=== PATIENT | male | born 1940 | race Caucasian/White ===

== ENCOUNTER 2020-01-13 19:47 | Inpatient (IN) | payer OTHER, MEDICARE ==
[~2020-01-13] VITALS: Ht 167.6 cm; Wt 64.8 kg
[~2020-01-13 19:47] MED LIST: AMLO10 PO; Avodart0.5 MG PO; FISH1000 PO; IBUP600 PO; SUMA25 PO; TAMS.4ER PO; TIMO.5OPSO LEFTEYE
[2020-01-13 21:48] LABS: Hematocrit 43.3 % (37.0-53.0); Hemoglobin 14.1 g/dL (13.5-17.5); Mean Corpuscular HGB 28.8 pg (26.0-34.0); Mean Corpuscular HGB Conc 32.6 g/dL (31.5-36.5); Mean Corpuscular Volume 89 fL (80-100); Mean Platelet Volume 13.1 fL (9.1-12.4); Platelet Count 119 K/mm3 (150-400); RDW Coefficient Variation 13.3 % (11.7-14.2); RDW Standard Deviation 43.8 fL (35.1-46.3); Red Blood Cell Count 4.89 M/mm3 (4.30-5.90); White Blood Cell Count 6.32 K/mm3 (4.00-11.30)
[2020-01-13 22:03] LABS: Anion Gap 5 mmol/L (6-16); Blood Urea Nitrogen 11 mg/dL (8-24); Bun/Creatinine Ratio 15.4 (12.0-20.0); CO2, Blood 28 mmol/L (21-32); Calcium, Blood 8.6 mg/dL (8.5-10.1); Chloride, Blood 104 mmol/L (98-108); Creatinine, Blood 0.71 mg/dL (0.60-1.20); Glomerular Filtration Rate >60 (60-); Glucose, Blood 87 mg/dL (70-99); Sodium, Blood 137 mmol/L (136-145)
[2020-01-13 23:12] LABS: BASOPHILS PERCENT MAN 0 % (0-2); EOSINOPHILS ABSOLUTE MAN 0.06 K/mm3 (0.00-0.68); EOSINOPHILS PERCENT MAN 1 % (0-6); LYMPHOCYTES ABSOLUTE MAN 1.26 K/mm3 (0.84-5.20); LYMPHOCYTES PERCENT MAN 20 % (21-46); MONOCYTES PERCENT MAN 8 % (4-13); MYELOCYTE ABSOLUTE MAN 0.06 K/mm3 (0.00-0.00); MYELOCYTE PERCENT MAN 1 % (0-0); NEUTROPHILS ABSOLUTE MAN 4.42 K/mm3 (1.96-9.15); SEG NEUTROPHILS PERCENT MAN 70 % (41-73); TOTAL CELLS COUNTED 100
[2020-01-13] MEDS ORDERED: CARBLEV25 PO (23:14)
[2020-01-13] MEDS ORDERED: AMAN100 PO (23:15)
--- NOTE | 2020-01-14 05:08 | NUR ---
EMERGING TECHNOLOGIES DIRECTOR SUMMARY NEW ADMIT FROM THE ED TONIGHT. PT ADMITTED WITH DIVERTICULITIS W/ ABCESS. PT GIVEN 0.5 MG IV DILAUDID WHEN HE ARRIVED TO THE FLOOR AND HE STATES PAIN HAS BEEN WELL MANAGED SINCE. PT AAOX4 AND VERY PLEASANT. CALLS APPROPRIATELY. HAS STEADY GAIT. NPO AND RECIEVING IV FLUIDS. SURGICAL CONSULT CALLED IN TO ANSWERING SERVICE FOR DR BUNDY THIS MORNING. VSS, WILL CONTINUE TO MONITOR.
[2020-01-14 05:14] LABS: BASOPHILS ABSOLUTE AUTO 0.03 K/mm3 (0.00-0.23); BASOPHILS PERCENT AUTO 1 % (0-2); EOSINOPHILS ABSOLUTE AUTO 0.17 K/mm3 (0.00-0.68); EOSINOPHILS PERCENT AUTO 3 % (0-6); Hematocrit 41.3 % (37.0-53.0); Hemoglobin 13.3 g/dL (13.5-17.5); IMMATURE GRAN ABSOLUTE AUTO 0.02 K/mm3 (0.00-0.10); IMMATURE GRAN PERCENT AUTO 0 % (0-1); LYMPHOCYTES ABSOLUTE AUTO 0.66 K/mm3 (0.84-5.20); LYMPHOCYTES PERCENT AUTO 12 % (21-46); MONOCYTES ABSOLUTE AUTO 0.58 K/mm3 (0.16-1.47); MONOCYTES PERCENT AUTO 11 % (4-13); Mean Corpuscular HGB 28.8 pg (26.0-34.0); Mean Corpuscular HGB Conc 32.2 g/dL (31.5-36.5); Mean Corpuscular Volume 89 fL (80-100); NEUTROPHILS ABSOLUTE AUTO 3.99 K/mm3 (1.96-9.15); NEUTROPHILS PERCENT AUTO 73 % (41-73); Platelet Count 108 K/mm3 (150-400); RDW Coefficient Variation 13.2 % (11.7-14.2); RDW Standard Deviation 43.3 fL (35.1-46.3); Red Blood Cell Count 4.62 M/mm3 (4.30-5.90); White Blood Cell Count 5.45 K/mm3 (4.00-11.30)
[2020-01-14 05:15] LABS: Mean Platelet Volume 13.4 fL (9.1-12.4)
[2020-01-14 06:02] LABS: Alanine Aminotransfer (ALT/SGP 36 U/L (12-78); Albumin, Blood 2.9 g/dL (3.4-5.0); Albumin/Globulin Ratio 0.8 (0.8-1.8); Alk Phos 87 U/L (50-136); Anion Gap 7 mmol/L (6-16); Aspartate Aminotrans (AST/SGOT 25 U/L (12-37); Blood Urea Nitrogen 10 mg/dL (8-24); Bun/Creatinine Ratio 14.7 (12.0-20.0); CO2, Blood 26 mmol/L (21-32); Calcium, Blood 8.4 mg/dL (8.5-10.1); Chloride, Blood 108 mmol/L (98-108); Creatinine, Blood 0.68 mg/dL (0.60-1.20); Globulin, Blood 3.5 g/dL (2.2-4.0); Glomerular Filtration Rate >60 (60-); Glucose, Blood 82 mg/dL (70-99); Potassium, Blood 4.1 mmol/L (3.5-5.5); Sodium, Blood 141 mmol/L (136-145); Total Protein, Blood 6.4 g/dL (6.4-8.2)
--- NOTE | 2020-01-14 17:42 | NUR ---
SHIFT SUMMARY NO ACUTE CONCERNS FROM THE PATIENT. DENIES ANY ABDOMINAL PAIN OR CHEST PAIN OR SHORTNESS OF BREATH. HE AHS BEEN UP WALKING AROUND. HE FINISHED HIS FLUIDS. DENIES ANY CONCERNS. HIS WAS IN TO SEE HIM. REQUESTING INCREASE IN DIET AT THIS TIME.
[2020-01-15 05:23] LABS: BASOPHILS ABSOLUTE AUTO 0.02 K/mm3 (0.00-0.23); BASOPHILS PERCENT AUTO 0 % (0-2); EOSINOPHILS ABSOLUTE AUTO 0.12 K/mm3 (0.00-0.68); EOSINOPHILS PERCENT AUTO 3 % (0-6); Hematocrit 44.8 % (37.0-53.0); Hemoglobin 14.5 g/dL (13.5-17.5); IMMATURE GRAN ABSOLUTE AUTO 0.02 K/mm3 (0.00-0.10); IMMATURE GRAN PERCENT AUTO 0 % (0-1); LYMPHOCYTES ABSOLUTE AUTO 0.57 K/mm3 (0.84-5.20); LYMPHOCYTES PERCENT AUTO 12 % (21-46); MONOCYTES ABSOLUTE AUTO 0.47 K/mm3 (0.16-1.47); MONOCYTES PERCENT AUTO 10 % (4-13); Mean Corpuscular HGB 28.6 pg (26.0-34.0); Mean Corpuscular HGB Conc 32.4 g/dL (31.5-36.5); Mean Corpuscular Volume 88 fL (80-100); Mean Platelet Volume 12.8 fL (9.1-12.4); NEUTROPHILS PERCENT AUTO 74 % (41-73); Platelet Count 146 K/mm3 (150-400); RDW Coefficient Variation 13.1 % (11.7-14.2); Red Blood Cell Count 5.07 M/mm3 (4.30-5.90)
[2020-01-15 05:47] LABS: Anion Gap 8 mmol/L (6-16); Blood Urea Nitrogen 11 mg/dL (8-24); Bun/Creatinine Ratio 15.7 (12.0-20.0); CO2, Blood 24 mmol/L (21-32); Calcium, Blood 9.1 mg/dL (8.5-10.1); Chloride, Blood 107 mmol/L (98-108); Glomerular Filtration Rate >60 (60-); Glucose, Blood 64 mg/dL (70-99); Potassium, Blood 4.3 mmol/L (3.5-5.5); Sodium, Blood 139 mmol/L (136-145)
--- NOTE | 2020-01-15 06:02 | NUR ---
SOILS ENGINEER SUMMARY NO ACUTE CHANGES THIS SHIFT. PT AAOX4 AND VERY PLEASANT. INDEPENDENT IN ROOM. PT DENIES PAIN TONIGHT, SAYING THAT "EVERY ONCE IN AWHILE I'LL GET A SLIGHT DISCOMFORT BUT THEN IT GOES AWAY". HAS DENIED NEED FOR PAIN MEDS. CONTINUED ON IV ZOSYN Q6H. PT DOES HAVE APPETITE AND WANTS TO EAT BUT IS STILL NPO STATUS PER MD ORDERS. VSS, WILL CONTINUE TO MONITOR.
--- NOTE | 2020-01-15 18:04 | NUR ---
SHIFT SUMMARY PATIENT IS PLEASANT, ALERT AND ORIENTED. INDEPENDENT IN THE ROOM. HE HAS AN UNDERLYING TREMOR FROM [place] AND HAS BEEN VERY PLEASANT TODAY. HE HAS BEEN WALKING THE HALLS. HE IS APPROPRIATE AND WEARS HIS MASK. NOW THAT HE IS EATING HE IS NOTICING SOME EPISODES OF INCONTINENCE.
[2020-01-16 05:19] LABS: BASOPHILS ABSOLUTE AUTO 0.03 K/mm3 (0.00-0.23); BASOPHILS PERCENT AUTO 1 % (0-2); EOSINOPHILS ABSOLUTE AUTO 0.12 K/mm3 (0.00-0.68); EOSINOPHILS PERCENT AUTO 3 % (0-6); Hematocrit 42.6 % (37.0-53.0); IMMATURE GRAN ABSOLUTE AUTO 0.01 K/mm3 (0.00-0.10); IMMATURE GRAN PERCENT AUTO 0 % (0-1); LYMPHOCYTES ABSOLUTE AUTO 0.74 K/mm3 (0.84-5.20); LYMPHOCYTES PERCENT AUTO 19 % (21-46); MONOCYTES ABSOLUTE AUTO 0.49 K/mm3 (0.16-1.47); MONOCYTES PERCENT AUTO 13 % (4-13); Mean Corpuscular HGB 28.4 pg (26.0-34.0); Mean Corpuscular HGB Conc 32.9 g/dL (31.5-36.5); Mean Corpuscular Volume 86 fL (80-100); Mean Platelet Volume 11.9 fL (9.1-12.4); NEUTROPHILS ABSOLUTE AUTO 2.48 K/mm3 (1.96-9.15); NEUTROPHILS PERCENT AUTO 64 % (41-73); Platelet Count 148 K/mm3 (150-400); RDW Coefficient Variation 12.9 % (11.7-14.2); RDW Standard Deviation 40.3 fL (35.1-46.3); Red Blood Cell Count 4.93 M/mm3 (4.30-5.90); White Blood Cell Count 3.87 K/mm3 (4.00-11.30)
--- NOTE | 2020-01-16 05:35 | NUR ---
SHIFT SUMMARY- PT. A&O, PLEASANT, AND COOPERATIVE WITH CARE. INDEP IN ROOM. NO COMPAINTS OF PAIN T/O THE SHIFT. PT. ASLEEP MOST OF THE NIGHT, NO APPARENT DISTRESS NOTED. TOLERATING IV ABX WELL. NO ACUTE CHANGES TO CONDITION. CALL LIGHT WITHIN REACH AND SIDE RAILS UPX2. WILL CONT TO MONITOR.
[2020-01-16 05:43] LABS: Anion Gap 7 mmol/L (6-16); Blood Urea Nitrogen 8 mg/dL (8-24); Bun/Creatinine Ratio 10.6 (12.0-20.0); CO2, Blood 26 mmol/L (21-32); Chloride, Blood 108 mmol/L (98-108); Creatinine, Blood 0.76 mg/dL (0.60-1.20); Glomerular Filtration Rate >60 (60-); Glucose, Blood 89 mg/dL (70-99); Magnesium, Blood 2.1 mg/dL (1.6-2.4); Phosphorus, Blood 2.8 mg/dL (2.5-4.9); Potassium, Blood 3.4 mmol/L (3.5-5.5); Sodium, Blood 141 mmol/L (136-145)
--- NOTE | 2020-01-16 17:10 | NUR ---
SHIFT SUMMARY NO ACUTE CONCERNS AT THIS TIME. ALERT AND ORIENTED INDEPENDENT. CALLS APPROPRIATELY. NO ACUTE CONCERNS AT THIS TIME. HE STATES HE IS READY TO GO HOME.
--- NOTE | 2020-01-17 05:06 | NUR ---
SHIFT SUMMARY: VSS. AFEB. SBP 161 THIS AM. AAOX3. IND IN ROOM. PT REPORTED HAVING A LOOSE STOOL ON DAY SHIFT. LLQ ABD TENDERNESS W/PALPATION. NO N/V. SELIN CLEAR LIQUIDS WELL. IV ABT INFUSED PER ORDERS. NO ACUTE CONCERNS OVERNIGHT. WILL CONT TO MONITOR.
[2020-01-17] MEDS ORDERED: LACTOBACILLUS1 EAC4 PO (12:46)
[2020-01-17] MEDS ORDERED: AMOCLA875 PO (12:46)
--- NOTE | 2020-01-17 13:47 | NUR ---
DISCHARGE DISCHARGE INSTRUCTIONS, MEDICATION LIST AND FOLLOW UP APPOINTMENTS REVIEWED WITH PT AND HIS SPOUSE. QUESTIONS/CONCERNS ANSWERED. BOTH VERBALLY INDICATED UNDERSTANDING OF ALL INSTRUCTIONS RECEIVED. NEW MED SCRIPS FAXED TO [facility] PER PT PREFERENCE. ESCORTED OUT BY VOLUNTEER VIA W/C.
== END 2020-01-17 13:32 | disposition home or self-care (01) | DRG 392 ==
LOC: ER 19:47 → MEDS 22:12
PROVIDERS: Internal Medicine; Surgery; ADMIT Internal Medicine
DX: K57.20 Diverticulitis of large intestine with perforation and abscess without bleeding (principal); G20 Parkinson's disease; E87.6 Hypokalemia; I10 Essential (primary) hypertension; N40.0 Benign prostatic hyperplasia without lower urinary tract symptoms; R54 Age-related physical debility; G56.00 Carpal tunnel syndrome, unspecified upper limb; G43.909 Migraine, unspecified, not intractable, without status migrainosus
CPT/HCPCS: 36415; 80048; 80053; 83735; 84100; 84132; 85007; 85025; 85027; 96365; 99285-25; A9270; J1170; J2405; J2543; J7030

== ENCOUNTER 2020-03-09 12:23 | Day surgery (SDC) | payer OTHER ==
[~2020-03-09] VITALS: Ht 170.2 cm; Wt 62.0 kg
[~2020-03-09 12:23] MED LIST changes: +AMAN100 PO; +AMOCLA875 PO; +CARBIDOPA-LEVO1 EA15 PO; +CARBLEV25 PO; +FISH OIL 1,2001 EAC7 PO; +IBU600 MG PO; +LACTOBACILLUS1 EAC4 PO; +TIMO.25OPS LEFTEYE
== END 2020-03-09 14:40 | disposition home or self-care (01) ==
LOC: ORSCSDS 12:23
PROVIDERS: Surgery
PROC: 0DBK8ZX Excision of Ascending Colon, Via Natural or Artificial Opening Endoscopic, Diagnostic (ICD-10-PCS; principal; 2020-03-09 13:45)
DX: K57.30 Diverticulosis of large intestine without perforation or abscess without bleeding (principal); D12.2 Benign neoplasm of ascending colon; I10 Essential (primary) hypertension; G20 Parkinson's disease; Z79.899 Other long term (current) drug therapy
CPT/HCPCS: 88305; J2704; J7040; J7120